=== PATIENT | male | born 1965 | race African-American/Black ===

== ENCOUNTER 2018-04-30 04:05 | Emergency (ER) | payer MEDICAID ==
[~2018-04-30] VITALS: Ht 177.8 cm; Wt 68.0 kg
[2018-04-30 04:05] VITALS: BP 112/78
[2018-04-30] MEDS ORDERED: NORVIR100 MG ORAL (04:13)
[2018-04-30] MEDS ORDERED: REYATAZ300 MG ORAL (04:13)
[2018-04-30] MEDS ORDERED: GABAPENTIN300 MG ORAL (04:19)
--- NOTE | 2018-04-30 04:19 | Emergency Room Report ---
History of Present Illness General Chief Complaint: Pain Source: Patient Present Illness HPI Is a 53-year-old male with a history of HIV. He said is taking his Jevity medication. He also has a history of chronic leg pain and back pain. Patient presents with chief complaint of right leg pain. Worse in the last day. Is a chronic issue. No trauma. Worse when he bear weight. Denies any fever chills. Pain is throbbing and deep in nature. Nothing made it better. Nothing made it worse. No incontinence of bowel or urine. No focal deficit. Allergies: Coded Allergies: No Known Allergies (Unverified , 04/30/18) Patient History Past Medical History: see triage record, old chart reviewed, HIV Past Surgical History: other Pertinent Family History: none Social History: Denies: smoking Immunizations: other Reviewed Nursing Documentation: PMH: Agreed; PSxH: Agreed Review of Systems Eye: Denies: eye pain, blurred vision ENT: Denies: ear pain, nose congestion, throat swelling Respiratory: Denies: cough, shortness of breath Cardiovascular: Denies: chest pain, palpitations Gastrointestinal: Denies: abdominal pain, diarrhea, nausea, vomiting Musculoskeletal: Reports: muscle pain; Denies: back pain, joint pain Skin: Denies: rash Neurological: Denies: headache, numbness Endocrine: Denies: increased thirst, increased urine Hematologic/Lymphatic: Denies: easy bruising All Other Systems: negative except mentioned in HPI Physical Exam Vital Signs Date Time Temp Pulse Resp B/P (MAP) Pulse Ox O2 Delivery O2 Flow Rate FiO2 04/30/18 04:01 97.8 87 16 109/79 98 Room Air 97.9 Sp02 EP Interpretation: reviewed, normal General Appearance: well appearing, no apparent distress, alert, other - Patient is very sedated. I had to wake him up Head: normocephalic, atraumatic Eyes: bilateral eye PERRL, bilateral eye EOMI ENT: hearing grossly normal, normal pharynx Neck: full range of motion, supple, no meningismus Respiratory: chest non-tender, lungs clear, normal breath sounds Cardiovascular #1: regular rate, rhythm, no murmur Gastrointestinal: normal bowel sounds, non tender, no mass, no organomegaly, no bruit, non-distended Musculoskeletal: back normal, gait/station normal, normal range of motion, other - Right leg: No deformity. Full range of motion. He was not grimacing when I was palpating it. Pulses normal. No calf tenderness. Neurologic: alert, oriented x3 Psychiatric: mood/affect normal Skin: warm/dry Medical Decision Making Diagnostic Impression: Primary Impression: Neuropathy of leg Qualified Codes: G57.91 - Unspecified mononeuropathy of right lower limb ER Course Patient with exacerbation of neuropathy of his right leg. No evidence of DVT or trauma. No fracture dislocation. We'll discharge home. Last Vital Signs Date Time Temp Pulse Resp B/P (MAP) Pulse Ox O2 Delivery O2 Flow Rate FiO2 04/30/18 04:01 97.8 87 16 109/79 98 Room Air 97.9 Status: unchanged Disposition: HOME, SELF-CARE Condition: Stable Scripts Gabapentin* (GABAPENTIN*) 300 Mg Capsule 300 MG ORAL BEDTIME, #30 CAP Prov: THEODORA VARGAS M.D. 04/30/18 Additional Instructions: Follow-up with your DrEddy in 7 days. Return if symptom worsen. THEODORA VARGAS M.D. Apr 30, 2018 04:19
[2018-04-30 04:55] VITALS: BP 115/74
[2018-04-30 05:05] VITALS: BP 115/74
== END 2018-04-30 05:35 | disposition home or self-care (01) ==
LOC: EDBD 04:05 → EMR 05:31
DX: G57.91 Unspecified mononeuropathy of right lower limb (principal); G89.29 Other chronic pain; M79.604 Pain in right leg; M54.9 Dorsalgia, unspecified
CPT/HCPCS: 99283